=== PATIENT | male | born 1980 | race Caucasian/White ===

== ENCOUNTER 2022-06-21 11:10 | Emergency (ER) | payer OTHER ==
[2022-06-21 12:25] LABS: BASOPHIL 0.3 % (0-2); EOSINOPHIL 1.6 % (0-5); HCT 42.6 % (42.0-52.0); HGB 13.9 g/dl (13.2-18.0); LYMPHOCYTE 14.7 % (15-48); MCH 30.3 pg (25.0-31.0); MCHC 32.6 g/dL (32.0-36.0); MPV 10.1 fL (6.0-9.5); NEUTROPHIL 74.1 % (41-80); NRBC 0; PLT 206 K/uL (150-400); RBC 4.58 M/uL (4.70-6.00); RDW 13.2 % (11.5-14.0); WBC 11.7 K/uL (4.0-10.5)
[2022-06-21 12:36] LABS: BUN/CREAT RATIO (CALC) 8.7 RATIO; CREATININE 0.69 mg/dL (0.67-1.17); POTASSIUM 4.2 mmol/L (3.5-5.1)
[2022-06-21 18:02] LABS: CORONAVIRUS 2019 SARS-COV-2 NEGATIVE (NEGATIVE); INFLUENZA A NAA NEGATIVE (NEGATIVE)
== END 2022-06-21 17:32 | disposition other institution (70) ==
LOC: FER 11:10
PROVIDERS: Emergency Medicine; Physician Assistant
DX: J36 Peritonsillar abscess (principal); F17.210 Nicotine dependence, cigarettes, uncomplicated; Z20.822 Contact with and (suspected) exposure to COVID-19; Z28.310 Unvaccinated for COVID-19
CPT/HCPCS: 36415; 70491; 80048; 83605; 85025; 87040; J1100; J2270; J2405; J2543; J7030; Q9967; U0002